=== PATIENT | male | born 1930 | race Caucasian/White ===

== ENCOUNTER 2017-02-02 07:54 | Day surgery (SDC) | payer OTHER ==
[~2017-02-02 07:54] MED LIST: ANTIVERT25 MG PO; ARANESP40 MCG/0.4 IV; CLINDAMYCIN HC300 MG PO; FLOMAX0.4 MG PO; LIPITOR20 MG PO; LOPRESSOR25 MG PO; MYSOLINE50 MG PO; PRILOSEC20 MG PO; PRIMIDONE50 MG PO; RENAGEL800 MG PO; ROPINIROLE HCL0.5 MG PO; SORBITOL SOLUT500 ML PO; SYNTHROID75 MCG PO; TRAVOPROST 0.02.5 ML BOTH EYES; VALIUM2 MG PO; VENTOLIN HFA18 GM IH; VITAMIN D-32000 UNI1 PO; ZOLOFT50 MG PO; ZYLOPRIM100 MG PO
[2017-02-02 09:45] LABS: METH RESISTANT S AUREUS PCR NEGATIVE (NEGATIVE)
[2017-02-02 09:47] LABS: PROBE CHECK PASS; SPECIMEN PROCESSING CONTROL PASS
== END 2017-02-02 10:12 | disposition home or self-care (01) ==
LOC: CATH 07:54
PROVIDERS: Surgery
DX: T82.858A Stenosis of other vascular prosthetic devices, implants and grafts, initial encounter (principal); I12.0 Hypertensive chronic kidney disease with stage 5 chronic kidney disease or end stage renal disease; N18.6 End stage renal disease; Z99.2 Dependence on renal dialysis; E78.00 Pure hypercholesterolemia, unspecified; J45.909 Unspecified asthma, uncomplicated; G47.30 Sleep apnea, unspecified; Z86.73 Personal history of transient ischemic attack (TIA), and cerebral infarction without residual deficits; Z87.891 Personal history of nicotine dependence
CPT/HCPCS: 87641; C1725; C1769; C1894; J1644; J2250; J3010; S0020

== ENCOUNTER 2017-04-15 10:39 | Day surgery (SDC) | payer OTHER ==
[~2017-04-15] VITALS: Ht 180.3 cm; Wt 92.0 kg
[2017-04-15] MEDS ORDERED: MAGNESIUM400 M1 PO (11:01)
[2017-04-15] MEDS ORDERED: RENAL VITAMIN0.8 MG PO (11:03)
[2017-04-15] MEDS ORDERED: PRIMIDONE50 MG PO (11:04)
[2017-04-15] MEDS ORDERED: NEURONTIN100 MG PO (11:04)
[2017-04-15 12:23] LABS: METH RESISTANT S AUREUS PCR NEGATIVE (NEGATIVE)
[2017-04-15 12:27] LABS: PROBE CHECK PASS; SPECIMEN PROCESSING CONTROL PASS
== END 2017-04-15 13:40 | disposition home or self-care (01) ==
LOC: CATH 10:39
PROVIDERS: Surgery
DX: T82.590A Other mechanical complication of surgically created arteriovenous fistula, initial encounter (principal); T82.858A Stenosis of other vascular prosthetic devices, implants and grafts, initial encounter; I87.1 Compression of vein; I12.0 Hypertensive chronic kidney disease with stage 5 chronic kidney disease or end stage renal disease; N18.6 End stage renal disease; Z99.2 Dependence on renal dialysis; I25.10 Atherosclerotic heart disease of native coronary artery without angina pectoris; Z95.5 Presence of coronary angioplasty implant and graft; E78.00 Pure hypercholesterolemia, unspecified; Z86.73 Personal history of transient ischemic attack (TIA), and cerebral infarction without residual deficits; M19.90 Unspecified osteoarthritis, unspecified site; J45.909 Unspecified asthma, uncomplicated; G47.30 Sleep apnea, unspecified; H40.9 Unspecified glaucoma; M10.9 Gout, unspecified; Z87.891 Personal history of nicotine dependence; Z84.1 Family history of disorders of kidney and ureter; Z82.49 Family history of ischemic heart disease and other diseases of the circulatory system; Z82.3 Family history of stroke
CPT/HCPCS: 87641; C1725; C1769; C1894; J1644; J2250; J3010

== ENCOUNTER 2017-08-22 11:47 | Day surgery (SDC) | payer OTHER ==
[~2017-08-22] VITALS: Ht 180.3 cm; Wt 81.0 kg
[~2017-08-22 11:47] MED LIST changes: +MAGNESIUM400 M1 PO; +NEURONTIN100 MG PO; +RENAL VITAMIN0.8 MG PO
== END 2017-08-22 15:15 | disposition home or self-care (01) ==
LOC: CATH 11:47
DX: T82.858A Stenosis of other vascular prosthetic devices, implants and grafts, initial encounter (principal); Y83.2 Surgical operation with anastomosis, bypass or graft as the cause of abnormal reaction of the patient, or of later complication, without mention of misadventure at the time of the procedure; N18.6 End stage renal disease; Z99.2 Dependence on renal dialysis
CPT/HCPCS: 87641; C1725; C1769; C1874; C1887; C1894; J1644; J2250; J3010